=== PATIENT | male | born 1935 | race Caucasian/White ===

== ENCOUNTER 2018-02-07 14:52 | Inpatient (IN) ==
[2018-02-07] MEDS ORDERED: cefTRIAXone 2,000 MG in SODIUM CHLORIDE 0.9% 100 ML IV STA (16:20)
[2018-02-07] MEDS ORDERED: VANCOMYCIN INJ 1,250 MG in SODIUM CHLORIDE 0.9% 250 ML IV STA (16:21)
[2018-02-07 16:24] LABS: Basophils % 0.3 % (0.0-0.8); Eosinophils # 0.1 10*3/uL (0.0-0.87); Eosinophils % 1.2 % (0.00-10.9); Hematocrit 44.5 VOL% (42.0-52.0); Hemoglobin 14.8 GM/DL (14.0-18.0); Immature Granulocytes % 0.5 %; Immature Granulocytes Absolute 0.05 #; Lymphocytes # 0.8 10*3/uL (1.4-4.0); Mean Corpuscular HGB Conc 33.3 GM/DL (32-36); Mean Corpuscular Hemoglobin 32 PG (27-34); Mean Corpuscular Volume 95.3 FL (87-102); Mean Platelet Volume 11.1 FL (9.6-12.0); Monocytes # 0.8 10*3/uL (0.11-0.8); Monocytes % 8.1 % (1.7-12.7); Neutrophils # 7.7 10*3/uL (1.4-7.4); Neutrophils % 81.9 % (38.7-73.9); Platelet Count 145 T/CUMM (130-400); Red Blood Count 4.67 MC/CUMM (3.8-5.5); Red Cell Distribution Width 12.6 % (9.3-17.3); White Blood Count 9.4 T/CUMM (4-12)
[2018-02-07 16:46] LABS: Calcium 8.5 MG/DL (8.5-10.1); Osmolality,Calculated 294.8 MOS/KG (273-304); Potassium 4.2 MMOL/L (3.5-5.1)
[2018-02-07] MEDS ORDERED: cefTRIAXone 2,000 MG in SYRINGE 1 EACH IV STA (17:06)
[2018-02-07 17:26] LABS: Sedimentation Rate-Westergren 40 MM/HR (0-20)
[2018-02-07] MEDS ORDERED: GLUCAGON HUMAN RECOMBINANT 1 MG IM PRN (17:26)
[2018-02-07] MEDS ORDERED: GLUCOSE GEL 15 GM TUBE PO PRN (17:26)
[2018-02-07] MEDS ORDERED: GLUCAGON 1 MG VIAL IM PRN (17:31)
[2018-02-07] MEDS ORDERED: ONDANSETRON 4 MG/2 ML VIAL IV PRN (17:31)
[2018-02-07] MEDS ORDERED: DOCUSATE SODIUM 100 MG CAPSULE PO PRN (17:31)
[2018-02-07] MEDS ORDERED: GLIMEPIRIDE 1 MG PO SCH (21:00)
[2018-02-07] MEDS: traZODone 50 MG TABLET PO SCH (21:15)
[2018-02-07] MEDS: ACETAMINOPHEN 325 MG TABLET PO SCH (21:15)
[2018-02-07] MEDS: CARBIDOPA/LEVODOPA 25-100 MG TABLET PO SCH (21:16)
[2018-02-07] MEDS: INSULIN REGULAR 100 UNIT/ML SUBCUT SCH (21:16)
[2018-02-07] MEDS: SODIUM CHLORIDE 0.9% 1,000 ML IV SCH (21:17)
[2018-02-08] MEDS: ACETAMINOPHEN 325 MG TABLET PO SCH ×4 (01:11→18:00)
[2018-02-08] MEDS: LEVOTHYROXINE 50 MCG TABLET PO SCH (05:54)
[2018-02-08 06:33] LABS: Basophils % 0.4 % (0.0-0.8); Eosinophils # 0.2 10*3/uL (0.0-0.87); Eosinophils % 1.8 % (0.00-10.9); Hematocrit 36.2 VOL% (42.0-52.0); Hemoglobin 12.3 GM/DL (14.0-18.0); Immature Granulocytes % 0.6 %; Immature Granulocytes Absolute 0.06 #; Lymphocytes # 0.9 10*3/uL (1.4-4.0); Lymphocytes % 8.3 % (21.2-54.2); Mean Corpuscular Hemoglobin 32 PG (27-34); Mean Corpuscular Volume 94.5 FL (87-102); Mean Platelet Volume 11.3 FL (9.6-12.0); Monocytes % 9.3 % (1.7-12.7); Neutrophils # 8.3 10*3/uL (1.4-7.4); Neutrophils % 79.6 % (38.7-73.9); Platelet Count 141 T/CUMM (130-400); Red Blood Count 3.83 MC/CUMM (3.8-5.5); Red Cell Distribution Width 12.6 % (9.3-17.3); White Blood Count 10.5 T/CUMM (4-12)
[2018-02-08 06:59] LABS: Calcium 7.9 MG/DL (8.5-10.1); Osmolality,Calculated 284.3 MOS/KG (273-304); Potassium 3.8 MMOL/L (3.5-5.1)
[2018-02-08] MEDS: INSULIN REGULAR 100 UNIT/ML SUBCUT SCH ×4 (08:00→21:00)
[2018-02-08] MEDS: MULTIVITAMIN (CENTRUM) TABLET PO SCH (09:09)
[2018-02-08] MEDS: CARBIDOPA/LEVODOPA 25-100 MG TABLET PO SCH ×3 (09:09→20:59)
[2018-02-08] MEDS: CITALOPRAM 20 MG TABLET PO SCH (09:09)
[2018-02-08] MEDS: PANTOPRAZOLE 40 MG TABLET PO SCH (09:09)
[2018-02-08] MEDS: SODIUM CHLORIDE 0.9% 1,000 ML IV SCH (16:51)
[2018-02-08] MEDS: VANCOMYCIN INJ 1,250 MG in SODIUM CHLORIDE 0.9% 250 ML IV SCH (18:28)
[2018-02-08] MEDS: traZODone 50 MG TABLET PO SCH (20:59)
[2018-02-09] MEDS: ACETAMINOPHEN 325 MG TABLET PO SCH ×5 (01:02→23:56)
[2018-02-09] MEDS: SODIUM CHLORIDE 0.9% 1,000 ML IV SCH ×2 (03:34→20:54)
[2018-02-09] MEDS: LEVOTHYROXINE 50 MCG TABLET PO SCH (06:41)
[2018-02-09] MEDS: INSULIN REGULAR 100 UNIT/ML SUBCUT SCH ×4 (09:31→20:49)
[2018-02-09] MEDS: CITALOPRAM 20 MG TABLET PO SCH (09:32)
[2018-02-09] MEDS: CARBIDOPA/LEVODOPA 25-100 MG TABLET PO SCH ×3 (09:32→20:48)
[2018-02-09] MEDS: MULTIVITAMIN (CENTRUM) TABLET PO SCH (09:32)
[2018-02-09] MEDS: PANTOPRAZOLE 40 MG TABLET PO SCH (09:32)
[2018-02-09] MEDS: VANCOMYCIN INJ 1,250 MG in SODIUM CHLORIDE 0.9% 250 ML IV SCH (18:46)
[2018-02-09] MEDS: traZODone 50 MG TABLET PO SCH (20:48)
[2018-02-10 05:55] LABS: Basophils # 0.1 10*3/uL (0.0-0.2); Basophils % 0.5 % (0.0-0.8); Eosinophils # 0.6 10*3/uL (0.0-0.87); Eosinophils % 5.5 % (0.00-10.9); Hematocrit 36.7 VOL% (42.0-52.0); Hemoglobin 12.3 GM/DL (14.0-18.0); Immature Granulocytes % 0.9 %; Immature Granulocytes Absolute 0.09 #; Lymphocytes # 1.4 10*3/uL (1.4-4.0); Lymphocytes % 13.1 % (21.2-54.2); Mean Corpuscular HGB Conc 33.5 GM/DL (32-36); Mean Corpuscular Hemoglobin 32 PG (27-34); Mean Corpuscular Volume 93.9 FL (87-102); Mean Platelet Volume 10.9 FL (9.6-12.0); Monocytes # 0.6 10*3/uL (0.11-0.8); Monocytes % 6.1 % (1.7-12.7); Neutrophils # 7.7 10*3/uL (1.4-7.4); Neutrophils % 73.9 % (38.7-73.9); Platelet Count 167 T/CUMM (130-400); Red Blood Count 3.91 MC/CUMM (3.8-5.5); Red Cell Distribution Width 12.8 % (9.3-17.3); White Blood Count 10.5 T/CUMM (4-12)
[2018-02-10] MEDS: ACETAMINOPHEN 325 MG TABLET PO SCH ×3 (05:57→17:42)
[2018-02-10] MEDS: LEVOTHYROXINE 50 MCG TABLET PO SCH (05:57)
[2018-02-10 06:22] LABS: Calcium 7.9 MG/DL (8.5-10.1); Potassium 4.2 MMOL/L (3.5-5.1)
[2018-02-10] MEDS: PIPERACILLIN/TAZOBACTAM 3,375 MG in SODIUM CHLORIDE 0.9% 100 ML IV SCH ×2 (09:51→17:42)
[2018-02-10] MEDS: INSULIN REGULAR 100 UNIT/ML SUBCUT SCH ×4 (09:51→20:57)
[2018-02-10] MEDS: PANTOPRAZOLE 40 MG TABLET PO SCH (09:52)
[2018-02-10] MEDS: CITALOPRAM 20 MG TABLET PO SCH (09:52)
[2018-02-10] MEDS: MULTIVITAMIN (CENTRUM) TABLET PO SCH (09:52)
[2018-02-10] MEDS: CARBIDOPA/LEVODOPA 25-100 MG TABLET PO SCH ×3 (09:52→20:57)
[2018-02-10] MEDS ORDERED: LIDOCAINE 1% 20 ML VIAL ONE (11:19)
[2018-02-10] MEDS ORDERED: PROPOFOL 200 MG/20 ML VIAL IV ONE (12:04)
[2018-02-10] MEDS ORDERED: SEVOFLURANE 1 UNIT/15 MINUTE INH ONE (12:05)
[2018-02-10] MEDS ORDERED: MIDAZOLAM 2 MG/2 ML VIAL ONE (12:07)
[2018-02-10] MEDS ORDERED: PHENYLEPHRINE 1 MG/10 ML SYRINGE IV ONE (12:08)
[2018-02-10] MEDS ORDERED: fentaNYL 100 MCG/2 ML VIAL ONE (12:08)
[2018-02-10] MEDS ORDERED: KETOROLAC 30 MG/1 ML VIAL ONE (12:08)
[2018-02-10] MEDS ORDERED: DEXAMETHASONE 10 MG/1 ML VIAL ONE (12:08)
[2018-02-10] MEDS ORDERED: ONDANSETRON 4 MG/2 ML VIAL ONE (12:08)
[2018-02-10] MEDS: VANCOMYCIN INJ 1,250 MG in SODIUM CHLORIDE 0.9% 250 ML IV SCH (15:58)
[2018-02-10] MEDS: SODIUM CHLORIDE 0.9% 1,000 ML IV SCH (17:33)
[2018-02-10] MEDS: ZINC OXIDE PASTE 113 GM TUBE TOP SCH ×2 (17:42→20:57)
[2018-02-10] MEDS: traZODone 50 MG TABLET PO SCH (20:57)
[2018-02-10] MEDS: CLOTRIMAZOLE 1% CREAM 15 GM TUBE TOP SCH (20:57)
[2018-02-11] MEDS: VANCOMYCIN INJ 1,250 MG in SODIUM CHLORIDE 0.9% 250 ML IV SCH (01:02)
[2018-02-11] MEDS: ACETAMINOPHEN 325 MG TABLET PO SCH ×4 (01:09→17:13)
[2018-02-11] MEDS: PIPERACILLIN/TAZOBACTAM 3,375 MG in SODIUM CHLORIDE 0.9% 100 ML IV SCH ×3 (03:12→18:25)
[2018-02-11 04:40] LABS: Basophils % 0.1 % (0.0-0.8); Hematocrit 40.4 VOL% (42.0-52.0); Hemoglobin 13.6 GM/DL (14.0-18.0); Immature Granulocytes % 1.1 %; Immature Granulocytes Absolute 0.15 #; Lymphocytes # 0.7 10*3/uL (1.4-4.0); Lymphocytes % 5.3 % (21.2-54.2); Mean Corpuscular HGB Conc 33.7 GM/DL (32-36); Mean Corpuscular Hemoglobin 32 PG (27-34); Mean Corpuscular Volume 93.7 FL (87-102); Mean Platelet Volume 10.7 FL (9.6-12.0); Monocytes # 0.2 10*3/uL (0.11-0.8); Monocytes % 1.1 % (1.7-12.7); Neutrophils # 12.4 10*3/uL (1.4-7.4); Neutrophils % 92.4 % (38.7-73.9); Platelet Count 206 T/CUMM (130-400); Red Blood Count 4.31 MC/CUMM (3.8-5.5); Red Cell Distribution Width 12.3 % (9.3-17.3); White Blood Count 13.4 T/CUMM (4-12)
[2018-02-11 05:09] LABS: Calcium 8.3 MG/DL (8.5-10.1); Osmolality,Calculated 299.4 MOS/KG (273-304); Potassium 4.4 MMOL/L (3.5-5.1)
[2018-02-11] MEDS: LEVOTHYROXINE 50 MCG TABLET PO SCH (06:15)
[2018-02-11] MEDS: CLOTRIMAZOLE 1% CREAM 15 GM TUBE TOP SCH ×2 (07:30→21:54)
[2018-02-11] MEDS: CARBIDOPA/LEVODOPA 25-100 MG TABLET PO SCH ×3 (08:34→21:54)
[2018-02-11] MEDS: INSULIN REGULAR 100 UNIT/ML SUBCUT SCH ×4 (08:34→21:54)
[2018-02-11] MEDS: PANTOPRAZOLE 40 MG TABLET PO SCH (08:34)
[2018-02-11] MEDS: CITALOPRAM 20 MG TABLET PO SCH (08:34)
[2018-02-11] MEDS: MULTIVITAMIN (CENTRUM) TABLET PO SCH (08:34)
[2018-02-11] MEDS: ZINC OXIDE PASTE 113 GM TUBE TOP SCH ×2 (09:43→21:55)
[2018-02-11] MEDS ORDERED: SODIUM CHLORIDE 0.9% 1,000 ML IV SCH (13:30)
[2018-02-11] MEDS: traZODone 50 MG TABLET PO SCH (21:54)
[2018-02-12] MEDS: VANCOMYCIN INJ 1,250 MG in SODIUM CHLORIDE 0.9% 250 ML IV SCH (00:18)
[2018-02-12] MEDS: ACETAMINOPHEN 325 MG TABLET PO SCH ×4 (00:22→17:51)
[2018-02-12] MEDS: PIPERACILLIN/TAZOBACTAM 3,375 MG in SODIUM CHLORIDE 0.9% 100 ML IV SCH (03:51)
[2018-02-12] MEDS: LEVOTHYROXINE 50 MCG TABLET PO SCH (06:06)
[2018-02-12 06:48] LABS: Basophils % 0.1 % (0.0-0.8); Hematocrit 37.9 VOL% (42.0-52.0); Hemoglobin 12.4 GM/DL (14.0-18.0); Immature Granulocytes % 1.2 %; Immature Granulocytes Absolute 0.24 #; Lymphocytes # 1.2 10*3/uL (1.4-4.0); Lymphocytes % 6.4 % (21.2-54.2); Mean Corpuscular HGB Conc 32.7 GM/DL (32-36); Mean Corpuscular Hemoglobin 32 PG (27-34); Mean Corpuscular Volume 96.4 FL (87-102); Mean Platelet Volume 11.1 FL (9.6-12.0); Monocytes # 0.6 10*3/uL (0.11-0.8); Monocytes % 2.9 % (1.7-12.7); Neutrophils # 17.3 10*3/uL (1.4-7.4); Neutrophils % 89.4 % (38.7-73.9); Platelet Count 230 T/CUMM (130-400); Red Blood Count 3.93 MC/CUMM (3.8-5.5); Red Cell Distribution Width 12.7 % (9.3-17.3); White Blood Count 19.4 T/CUMM (4-12)
[2018-02-12 07:11] LABS: Calcium 8.5 MG/DL (8.5-10.1); Potassium 4.7 MMOL/L (3.5-5.1)
[2018-02-12] MEDS: CARBIDOPA/LEVODOPA 25-100 MG TABLET PO SCH ×3 (09:22→21:25)
[2018-02-12] MEDS: PANTOPRAZOLE 40 MG TABLET PO SCH (09:22)
[2018-02-12] MEDS: GLIMEPIRIDE 2 MG TABLET PO SCH (09:22)
[2018-02-12] MEDS: MULTIVITAMIN (CENTRUM) TABLET PO SCH (09:22)
[2018-02-12] MEDS: CITALOPRAM 20 MG TABLET PO SCH (09:23)
[2018-02-12] MEDS: INSULIN REGULAR 100 UNIT/ML SUBCUT SCH ×4 (11:05→21:31)
[2018-02-12] MEDS: cefTAZidime 2,000 MG in SYRINGE 1 EACH IV SCH ×2 (11:46→15:48)
[2018-02-12] MEDS: ZINC OXIDE PASTE 113 GM TUBE TOP SCH (11:49)
[2018-02-12] MEDS: CLOTRIMAZOLE 1% CREAM 15 GM TUBE TOP SCH (11:49)
[2018-02-12] MEDS: traZODone 50 MG TABLET PO SCH (21:25)
[2018-02-13] MEDS: ZINC OXIDE PASTE 113 GM TUBE TOP SCH ×2 (00:12→12:20)
[2018-02-13] MEDS: cefTAZidime 2,000 MG in SYRINGE 1 EACH IV SCH ×2 (00:13→09:30)
[2018-02-13] MEDS: ACETAMINOPHEN 325 MG TABLET PO SCH ×3 (00:17→12:19)
[2018-02-13] MEDS: CLOTRIMAZOLE 1% CREAM 15 GM TUBE TOP SCH ×2 (00:25→12:20)
[2018-02-13] MEDS: VANCOMYCIN INJ 1,250 MG in SODIUM CHLORIDE 0.9% 250 ML IV SCH (00:32)
[2018-02-13] MEDS: LEVOTHYROXINE 50 MCG TABLET PO SCH (05:45)
[2018-02-13 06:51] LABS: Basophils # 0.1 10*3/uL (0.0-0.2); Basophils % 0.6 % (0.0-0.8); Eosinophils # 0.2 10*3/uL (0.0-0.87); Eosinophils % 2.1 % (0.00-10.9); Hematocrit 37.4 VOL% (42.0-52.0); Hemoglobin 12.5 GM/DL (14.0-18.0); Immature Granulocytes % 2.6 %; Immature Granulocytes Absolute 0.26 #; Lymphocytes # 2.1 10*3/uL (1.4-4.0); Lymphocytes % 20.8 % (21.2-54.2); Mean Corpuscular HGB Conc 33.4 GM/DL (32-36); Mean Corpuscular Hemoglobin 31 PG (27-34); Mean Corpuscular Volume 93.5 FL (87-102); Mean Platelet Volume 10.8 FL (9.6-12.0); Monocytes # 0.5 10*3/uL (0.11-0.8); Neutrophils # 6.9 10*3/uL (1.4-7.4); Neutrophils % 68.9 % (38.7-73.9); Platelet Count 250 T/CUMM (130-400); Red Cell Distribution Width 13.1 % (9.3-17.3)
[2018-02-13 07:22] LABS: Calcium 8.1 MG/DL (8.5-10.1); Potassium 4.2 MMOL/L (3.5-5.1)
[2018-02-13] MEDS: MULTIVITAMIN (CENTRUM) TABLET PO SCH (09:29)
[2018-02-13] MEDS: CARBIDOPA/LEVODOPA 25-100 MG TABLET PO SCH ×2 (09:29→14:44)
[2018-02-13] MEDS: PANTOPRAZOLE 40 MG TABLET PO SCH (09:29)
[2018-02-13] MEDS: GLIMEPIRIDE 2 MG TABLET PO SCH (09:29)
[2018-02-13] MEDS: CITALOPRAM 20 MG TABLET PO SCH (09:29)
[2018-02-13] MEDS: INSULIN REGULAR 100 UNIT/ML SUBCUT SCH ×2 (09:58→13:49)
[2018-02-13 13:58] VITALS: BP 121/60
== END 2018-02-13 16:42 | DRG 256 ==
LOC: EDUNIT# → EDBD → N.ED 14:52 → N.EDINP 17:31 → SUATTDRO 17:31 → N.5E 18:05
PROVIDERS: ADMIT Internal Medicine Cardiovascular Disease; ATTEND Internal Medicine

== ENCOUNTER 2018-08-10 22:34 | Inpatient (IN) ==
[2018-08-10] MEDS ORDERED: SODIUM CHLORIDE 0.9% 1,000 ML IV STA (23:07)
[2018-08-10] MEDS ORDERED: VANCOMYCIN INJ 1,000 MG in SODIUM CHLORIDE 0.9% 250 ML IV STA (23:07)
[2018-08-10] MEDS ORDERED: INSULIN REGULAR 100 UNIT/ML SUBCUT STA (23:11)
[2018-08-10] MEDS ORDERED: INSULIN REGULAR 100 UNIT/ML IV STA (23:11)
[2018-08-10 23:19] LABS: Basophils % 0.5 % (0.0-0.8); Eosinophils # 0.1 10*3/uL (0.0-0.87); Eosinophils % 0.7 % (0.00-10.9); Hemoglobin 12.7 GM/DL (14.0-18.0); Immature Granulocytes % 0.8 %; Immature Granulocytes Absolute 0.06 #; Lymphocytes # 1.2 10*3/uL (1.4-4.0); Lymphocytes % 16.3 % (21.2-54.2); Mean Corpuscular Hemoglobin 31 PG (27-34); Mean Corpuscular Volume 98.8 FL (87-102); Mean Platelet Volume 11.2 FL (9.6-12.0); Monocytes # 0.5 10*3/uL (0.11-0.8); Monocytes % 6.3 % (1.7-12.7); Neutrophils # 5.7 10*3/uL (1.4-7.4); Neutrophils % 75.4 % (38.7-73.9); Platelet Count 179 T/CUMM (130-400); Red Blood Count 4.15 MC/CUMM (3.8-5.5); Red Cell Distribution Width 14.6 % (9.3-17.3); White Blood Count 7.6 T/CUMM (4-12)
[2018-08-10 23:26] LABS: INR 1.1; PT Patient Result 11.9 SECS; Partial Thromboplastin Time 25.7 SECS (0-40)
[2018-08-10 23:33] LABS: Alanine Aminotransferase 33 U/L (16-61); Albumin 2.4 G/DL (3.4-5.0); Alkaline Phosphatase 168 U/L (45-117); Aspartate Amino Transferase 57 U/L (0-37); Blood Urea Nitrogen 35 MG/DL (7-18); Calcium 8.2 MG/DL (8.5-10.1); Osmolality,Calculated 304.1 MOS/KG (273-304); Potassium 5.4 MMOL/L (3.5-5.1); Sodium 135 MMOL/L (136-145)
[2018-08-10 23:37] LABS: Glucose 587 MG/DL (74-106)
[2018-08-11] MEDS ORDERED: FUROSEMIDE 40 MG/4 ML VIAL ONE (00:28)
[2018-08-11] MEDS ORDERED: PIPERACILLIN/TAZOBACTAM 3,375 MG VIAL IV ONE (00:28)
[2018-08-11] MEDS ORDERED: PIPERACILLIN/TAZOBACTAM 3,375 MG in SODIUM CHLORIDE 0.9% 100 ML IV STA (00:29)
[2018-08-11] MEDS ORDERED: FUROSEMIDE 40 MG/4 ML VIAL IV STA (00:29)
[2018-08-11] MEDS ORDERED: SODIUM CHLORIDE 0.9% 100 ML IV ONE (00:31)
[2018-08-11] MEDS ORDERED: GLUCAGON 1 MG VIAL IM PRN (01:04)
[2018-08-11] MEDS ORDERED: ONDANSETRON 4 MG/2 ML VIAL IV PRN (01:04)
[2018-08-11] MEDS ORDERED: DEXTROSE 50% 25 GM/50 ML SYRINGE IV PRN (01:04)
[2018-08-11] MEDS ORDERED: DOCUSATE SODIUM 100 MG CAPSULE PO PRN (01:04)
[2018-08-11] MEDS ORDERED: ALBUTEROL 2.5 MG/3 ML NEB RESP TX PRN (01:04)
[2018-08-11] MEDS ORDERED: ACETAMINOPHEN 325 MG TABLET PO PRN (01:04)
[2018-08-11] MEDS ORDERED: ACETAMINOPHEN 325 MG TABLET ONE (01:24)
[2018-08-11] MEDS ORDERED: LEVOFLOXACIN INJ 750 MG in PREMIX 1 EACH IV SCH (01:30)
[2018-08-11] MEDS ORDERED: SODIUM CHLORIDE 0.9% 1,000 ML IV SCH (01:30)
[2018-08-11 01:52] LABS: Apearance,Urine Slightly Hazy (Clear); Bilirubin,Urine Negative (Negative); Blood, Urine Moderate mg/dL (Negative); Glucose,Urine (UA) >=500 mg/dL (Negative); Hyaline Casts,Urine 100 /LPF (0-3); Ketones,Urine Negative (Negative); Mucus,Urine Occasional /LPF (Occasional); Nitrite,Urine Negative (Negative); Protein,Urine 30 MG/DL; RBC,Urine 6 /HPF (0-4); Squamous Epithelial Cell,Urine Occasional /HPF (0-10); Urine Color Yellow (Yellow); Urine Specific Gravity 1.014 (1.001-1.035); Urine Urobilinogen < 2.0 EU/DL (0.2-1.0); WBC,Urine 3 /HPF (0-6)
[2018-08-11] MEDS ORDERED: DOBUTamine 500 MG/250 ML PREMIX IV PRN (02:58)
[2018-08-11 04:28] LABS: Basophils % 0.4 % (0.0-0.8); Eosinophils % 0.1 % (0.00-10.9); Hematocrit 37.3 VOL% (42.0-52.0); Hemoglobin 11.7 GM/DL (14.0-18.0); Immature Granulocytes % 0.6 %; Immature Granulocytes Absolute 0.05 #; Lymphocytes % 12.2 % (21.2-54.2); Mean Corpuscular HGB Conc 31.4 GM/DL (32-36); Mean Corpuscular Hemoglobin 31 PG (27-34); Mean Corpuscular Volume 98.2 FL (87-102); Mean Platelet Volume 10.3 FL (9.6-12.0); Monocytes # 0.6 10*3/uL (0.11-0.8); Monocytes % 7.9 % (1.7-12.7); Neutrophils # 6.2 10*3/uL (1.4-7.4); Neutrophils % 78.8 % (38.7-73.9); Platelet Count 199 T/CUMM (130-400); Red Cell Distribution Width 14.5 % (9.3-17.3); White Blood Count 7.9 T/CUMM (4-12)
[2018-08-11 05:00] LABS: Osmolality,Calculated 290.4 MOS/KG (273-304); Potassium 4.1 MMOL/L (3.5-5.1); Thyroid Stimulating Hormone 5.09 uIU/ml (0.358-3.74)
[2018-08-11] MEDS: ENOXAPARIN 80 MG/0.8 ML SYRINGE SUBCUT SCH (05:10)
[2018-08-11] MEDS: ALBUTEROL/IPRATROPIUM 3 ML NEB RESP TX SCH ×3 (07:10→20:08)
[2018-08-11] MEDS: INSULIN REGULAR 100 UNIT/ML SUBCUT SCH ×4 (08:58→20:32)
[2018-08-11] MEDS ORDERED: ENOXAPARIN 30 MG/0.3 ML SYRINGE SUBCUT SCH (09:00)
[2018-08-11] MEDS: FUROSEMIDE 40 MG/4 ML VIAL IV SCH ×2 (11:03→16:43)
[2018-08-11] MEDS: ROSUVASTATIN 20 MG TABLET PO SCH (11:03)
[2018-08-11] MEDS: ASPIRIN EC 81 MG TABLET PO SCH (11:03)
[2018-08-11] MEDS: PIPERACILLIN/TAZOBACTAM 3,375 MG in SODIUM CHLORIDE 0.9% 100 ML IV SCH ×2 (12:32→20:34)
[2018-08-11] MEDS ORDERED: VANCOMYCIN INJ 1,250 MG in SODIUM CHLORIDE 0.9% 250 ML IV ONE ×2 (13:30→15:00)
[2018-08-11] MEDS ORDERED: NOREPINEPHRINE 8 MG in SODIUM CHLORIDE 0.9% 242 ML IV PRN (13:33)
[2018-08-11] MEDS ORDERED: VANCOMYCIN INJ 1,250 MG in SODIUM CHLORIDE 0.9% 250 ML IV PRN (15:03)
[2018-08-11] MEDS: MEMANTINE 5 MG TABLET PO SCH (20:33)
[2018-08-11] MEDS: CARBIDOPA/LEVODOPA 25-100 MG TABLET PO SCH (20:33)
[2018-08-12] MEDS: ALBUTEROL/IPRATROPIUM 3 ML NEB RESP TX SCH ×4 (00:44→19:57)
[2018-08-12 05:04] LABS: Calcium 7.9 MG/DL (8.5-10.1); Osmolality,Calculated 289.4 MOS/KG (273-304); Potassium 4.1 MMOL/L (3.5-5.1)
[2018-08-12] MEDS: PIPERACILLIN/TAZOBACTAM 3,375 MG in SODIUM CHLORIDE 0.9% 100 ML IV SCH (05:07)
[2018-08-12] MEDS: ENOXAPARIN 80 MG/0.8 ML SYRINGE SUBCUT SCH (05:07)
[2018-08-12 05:51] LABS: Basophils # 0.1 10*3/uL (0.0-0.2); Basophils % 0.7 % (0.0-0.8); Eosinophils # 0.1 10*3/uL (0.0-0.87); Eosinophils % 1.8 % (0.00-10.9); Hematocrit 40.9 VOL% (42.0-52.0); Hemoglobin 12.8 GM/DL (14.0-18.0); Immature Granulocytes % 0.7 %; Immature Granulocytes Absolute 0.05 #; Lymphocytes # 1.2 10*3/uL (1.4-4.0); Lymphocytes % 16.8 % (21.2-54.2); Mean Corpuscular HGB Conc 31.3 GM/DL (32-36); Mean Corpuscular Hemoglobin 31 PG (27-34); Mean Corpuscular Volume 98.6 FL (87-102); Mean Platelet Volume 10.7 FL (9.6-12.0); Monocytes # 0.6 10*3/uL (0.11-0.8); Monocytes % 8.1 % (1.7-12.7); Neutrophils # 5.1 10*3/uL (1.4-7.4); Neutrophils % 71.9 % (38.7-73.9); Platelet Count 141 T/CUMM (130-400); Red Blood Count 4.15 MC/CUMM (3.8-5.5); White Blood Count 7.1 T/CUMM (4-12)
[2018-08-12] MEDS: LEVOTHYROXINE 50 MCG TABLET PO SCH (06:21)
[2018-08-12] MEDS: MULTIVITAMIN (CENTRUM) TABLET PO SCH (09:07)
[2018-08-12] MEDS: FUROSEMIDE 40 MG/4 ML VIAL IV SCH ×2 (09:07→16:31)
[2018-08-12] MEDS: CARBIDOPA/LEVODOPA 25-100 MG TABLET PO SCH ×3 (09:07→20:50)
[2018-08-12] MEDS: MEMANTINE 5 MG TABLET PO SCH ×2 (09:07→20:49)
[2018-08-12] MEDS: ASPIRIN EC 81 MG TABLET PO SCH (09:07)
[2018-08-12] MEDS: ROSUVASTATIN 20 MG TABLET PO SCH (09:07)
[2018-08-12] MEDS: THIAMINE 100 MG TABLET PO SCH (09:08)
[2018-08-12] MEDS: INSULIN REGULAR 100 UNIT/ML SUBCUT SCH ×4 (09:08→20:50)
[2018-08-12] MEDS ORDERED: CLOPIDOGREL 300 MG TABLET PO ONE (16:18)
[2018-08-12] MEDS: METOPROLOL TARTRATE 25 MG TABLET PO SCH (20:50)
[2018-08-13] MEDS: ALBUTEROL/IPRATROPIUM 3 ML NEB RESP TX SCH ×4 (00:57→19:45)
[2018-08-13] MEDS: ENOXAPARIN 80 MG/0.8 ML SYRINGE SUBCUT SCH (04:13)
[2018-08-13 04:36] LABS: Basophils % 0.4 % (0.0-0.8); Eosinophils # 0.3 10*3/uL (0.0-0.87); Eosinophils % 2.8 % (0.00-10.9); Hematocrit 38.1 VOL% (42.0-52.0); Hemoglobin 12.1 GM/DL (14.0-18.0); Immature Granulocytes % 0.7 %; Immature Granulocytes Absolute 0.07 #; Lymphocytes # 1.7 10*3/uL (1.4-4.0); Lymphocytes % 15.5 % (21.2-54.2); Mean Corpuscular HGB Conc 31.8 GM/DL (32-36); Mean Corpuscular Hemoglobin 30 PG (27-34); Mean Corpuscular Volume 95.5 FL (87-102); Mean Platelet Volume 10.7 FL (9.6-12.0); Monocytes # 0.8 10*3/uL (0.11-0.8); Monocytes % 7.8 % (1.7-12.7); Neutrophils # 7.8 10*3/uL (1.4-7.4); Neutrophils % 72.8 % (38.7-73.9); Platelet Count 201 T/CUMM (130-400); Red Blood Count 3.99 MC/CUMM (3.8-5.5); White Blood Count 10.7 T/CUMM (4-12)
[2018-08-13 04:54] LABS: Calcium 8.2 MG/DL (8.5-10.1); Osmolality,Calculated 287.1 MOS/KG (273-304); Potassium 3.2 MMOL/L (3.5-5.1)
[2018-08-13] MEDS: LEVOTHYROXINE 50 MCG TABLET PO SCH (06:13)
[2018-08-13] MEDS: INSULIN REGULAR 100 UNIT/ML SUBCUT SCH ×4 (08:59→21:28)
[2018-08-13] MEDS: ASPIRIN EC 81 MG TABLET PO SCH (09:00)
[2018-08-13] MEDS: MEMANTINE 5 MG TABLET PO SCH ×2 (09:00→21:29)
[2018-08-13] MEDS: METOPROLOL TARTRATE 25 MG TABLET PO SCH ×3 (09:00→21:28)
[2018-08-13] MEDS: THIAMINE 100 MG TABLET PO SCH (09:00)
[2018-08-13] MEDS: ROSUVASTATIN 20 MG TABLET PO SCH (09:00)
[2018-08-13] MEDS: CARBIDOPA/LEVODOPA 25-100 MG TABLET PO SCH ×3 (09:00→21:29)
[2018-08-13] MEDS: FUROSEMIDE 40 MG/4 ML VIAL IV SCH ×2 (09:00→16:04)
[2018-08-13] MEDS ORDERED: CLOPIDOGREL 75 MG TABLET PO SCH (09:00)
[2018-08-13] MEDS: MULTIVITAMIN (CENTRUM) TABLET PO SCH (09:00)
[2018-08-13] MEDS: POTASSIUM CHLORIDE 20 MEQ TABLET PO SCH ×2 (12:49→16:03)
[2018-08-13 17:09] LABS: Calcium 8.5 MG/DL (8.5-10.1); Osmolality,Calculated 285.5 MOS/KG (273-304); Potassium 3.9 MMOL/L (3.5-5.1)
[2018-08-14] MEDS: ALBUTEROL/IPRATROPIUM 3 ML NEB RESP TX SCH ×2 (01:34→07:55)
[2018-08-14] MEDS: ENOXAPARIN 80 MG/0.8 ML SYRINGE SUBCUT SCH (03:53)
[2018-08-14 03:56] LABS: Basophils % 0.3 % (0.0-0.8); Eosinophils # 0.2 10*3/uL (0.0-0.87); Eosinophils % 2.4 % (0.00-10.9); Hematocrit 41.9 VOL% (42.0-52.0); Hemoglobin 13.4 GM/DL (14.0-18.0); Immature Granulocytes % 0.6 %; Immature Granulocytes Absolute 0.05 #; Lymphocytes # 1.7 10*3/uL (1.4-4.0); Lymphocytes % 18.3 % (21.2-54.2); Mean Corpuscular Hemoglobin 31 PG (27-34); Mean Corpuscular Volume 96.3 FL (87-102); Mean Platelet Volume 10.5 FL (9.6-12.0); Monocytes # 0.6 10*3/uL (0.11-0.8); Neutrophils # 6.4 10*3/uL (1.4-7.4); Neutrophils % 71.4 % (38.7-73.9); Platelet Count 225 T/CUMM (130-400); Red Blood Count 4.35 MC/CUMM (3.8-5.5)
[2018-08-14 04:25] LABS: Alanine Aminotransferase < 9 U/L (16-61); Albumin 2.4 G/DL (3.4-5.0); Alkaline Phosphatase 170 U/L (45-117); Aspartate Amino Transferase 41 U/L (0-37); Blood Urea Nitrogen 33 MG/DL (7-18); Calcium 8.6 MG/DL (8.5-10.1); Glucose 86 MG/DL (74-106); Osmolality,Calculated 282.5 MOS/KG (273-304); Potassium 4.1 MMOL/L (3.5-5.1); Sodium 139 MMOL/L (136-145); Total Protein 6.6 G/DL (6.4-8.3)
[2018-08-14 05:26] VITALS: BP 85/56
[2018-08-14] MEDS: LEVOTHYROXINE 50 MCG TABLET PO SCH (06:02)
[2018-08-14] MEDS ORDERED: FUROSEMIDE 40 MG TABLET PO SCH (08:00)
[2018-08-14 08:02] LABS: Basophils # 0.1 10*3/uL (0.0-0.2); Basophils % 0.5 % (0.0-0.8); Eosinophils # 0.4 10*3/uL (0.0-0.87); Eosinophils % 3.4 % (0.00-10.9); Hematocrit 44.7 VOL% (42.0-52.0); Immature Granulocytes % 0.5 %; Immature Granulocytes Absolute 0.07 #; Lymphocytes # 4.2 10*3/uL (1.4-4.0); Lymphocytes % 32.7 % (21.2-54.2); Mean Corpuscular HGB Conc 31.3 GM/DL (32-36); Mean Corpuscular Hemoglobin 31 PG (27-34); Mean Corpuscular Volume 97.8 FL (87-102); Mean Platelet Volume 10.8 FL (9.6-12.0); Monocytes # 0.9 10*3/uL (0.11-0.8); Monocytes % 6.7 % (1.7-12.7); Neutrophils # 7.2 10*3/uL (1.4-7.4); Neutrophils % 56.2 % (38.7-73.9); Platelet Count 252 T/CUMM (130-400); Red Blood Count 4.57 MC/CUMM (3.8-5.5); Red Cell Distribution Width 15.3 % (9.3-17.3); White Blood Count 12.8 T/CUMM (4-12)
[2018-08-14 08:23] LABS: Blood Urea Nitrogen 30 MG/DL (7-18); Calcium 8.4 MG/DL (8.5-10.1); Glucose 99 MG/DL (74-106); Osmolality,Calculated 282.5 MOS/KG (273-304); Potassium 4.2 MMOL/L (3.5-5.1); Sodium 139 MMOL/L (136-145)
[2018-08-14] MEDS ORDERED: SODIUM CHLORIDE 0.9% 250 ML IV ONE (08:37)
[2018-08-14] MEDS ORDERED: METOPROLOL TARTRATE 25 MG TABLET PO SCH (09:00)
[2018-08-14] MEDS ORDERED: LORazepam 2 MG/1 ML VIAL ONE (09:20)
== END 2018-08-14 09:27 | disposition expired ==
LOC: EDBD → EDUNIT# → N.ED 22:34 → SUATTDRO 08-11 00:51 → N.EDINP 08-11 00:51 → N.CC 08-11 01:10 → N.TELEN 08-13 14:05
PROVIDERS: ADMIT Internal Medicine; ATTEND Internal Medicine